=== PATIENT | male | born 1970 | race Caucasian/White ===

== ENCOUNTER 2016-11-18 10:08 | Emergency (ER) | payer OTHER ==
[2016-11-18 11:02] LABS: BASO % 0.2 % (0.2-1.2); EOS # 0.2 10_X3_uL (0.0-0.5); EOS % 3.3 % (0.8-7.0); GRAN % 76.7 % (34.0-67.9); HEMATOCRIT 44.2 % (40-51); HEMOGLOBIN 14.6 g/dL (13.7-17.5); LYMPH # 0.5 10_X3_uL (1.3-3.6); MEAN CORPUSCULAR HEMOGLOBIN 31.5 pg (27.0-33.0); MEAN CORPUSCULAR VOLUME 95.5 fL (79-92); MEAN PLATELET VOLUME 9.9 fl (7.5-11.5); MONO # 0.5 10_X3_uL (0.3-0.8); MONO % 9.8 % (5.3-12.2); PLATELET COUNT 238 x10_3/uL (163-337); RED BLOOD COUNT 4.63 x10_6/uL (4.6-6.1); RED CELL DISTRIBUTION WIDTH 13.5 % (11.6-14.4); WHITE BLOOD COUNT 5.2 x10_3/uL (4.2-9.1)
[2016-11-18 11:19] LABS: ALBUMIN 4.1 gm/dL (3.4-5.0); ALKALINE PHOSPHATASE 84 U/L (50-136); ALT/SGPT 20 U/L (7.53-40.17); AMYLASE 36 U/L (15.62-74.58); AST/SGOT 24 U/L (6.66-35.34); BILIRUBIN,TOTAL 0.34 mg/dL (0.0-1.0); BLOOD UREA NITROGEN 21 mg/dL (7-18); CALCIUM 8.6 mg/dL (8.7-10.7); CARBON DIOXIDE 22 mmol/L (21-32); GLUCOSE,RANDOM 98 mg/dL (70-99); LIPASE 19 U/L (6.75-60.75); POTASSIUM 4.1 mmol/L (3.5-5.1); SODIUM 136 mmol/L (136-145); TOTAL PROTEIN 7.2 gm/dL (6.4-8.2)
== END 2016-11-18 11:36 | disposition home or self-care (01) ==
LOC: ER 10:08
PROVIDERS: Emergency Medicine
DX: B34.9 Viral infection, unspecified (principal); R10.13 Epigastric pain; R10.11 Right upper quadrant pain; R11.10 Vomiting, unspecified; R19.7 Diarrhea, unspecified; R51 Headache; M25.50 Pain in unspecified joint; R63.0 Anorexia; Z87.442 Personal history of urinary calculi; F17.210 Nicotine dependence, cigarettes, uncomplicated
CPT/HCPCS: 36415; 80053; 82150; 83690; 85025; 99283